=== PATIENT | male | born 1985 | race Two or more races ===

== ENCOUNTER 2016-11-03 08:29 | Emergency (ER) | payer SELFPAY ==
[~2016-11-03] VITALS: Ht 165.1 cm; Wt 63.0 kg
[2016-11-03 08:57] VITALS: BP 120/80
[2016-11-03 09:58] LABS: GLUCOSE URINE NEGATIVE (NEGATIVE); KETONES URINE NEGATIVE (NEGATIVE); LEUKOCYTE ESTERASE URINE NEGATIVE (NEGATIVE); NITRITE URINE NEGATIVE (NEGATIVE); OCCULT BLOOD URINE TRACE (NEGATIVE); PH URINE 6.5 (4.5-8.0); PROTEIN URINE NEGATIVE (NEGATIVE); UROBILINOGEN URINE 0.2 E.U./dL (0.2-1.0)
[2016-11-03 10:02] LABS: CLARITY URINE CLEAR (CLEAR); COLOR URINE STRAW (YELLOW)
== END 2016-11-03 11:18 | disposition home or self-care (01) ==
LOC: ER 09:28
DX: N48.1 Balanitis (principal); R21 Rash and other nonspecific skin eruption
CPT/HCPCS: 81001; 99283

== ENCOUNTER 2019-06-06 20:40 | Emergency (ER) | payer SELFPAY ==
[~2019-06-06] VITALS: Ht 165.1 cm; Wt 64.0 kg
[2019-06-06] MEDS ORDERED: ACETAMINOPHEN 325MG TABLET PO ONE (22:45)
[2019-06-07 00:14] VITALS: BP 124/72
== END 2019-06-07 00:19 | disposition home or self-care (01) ==
LOC: ER 20:40
DX: S63.501A Unspecified sprain of right wrist, initial encounter (principal); S50.01XA Contusion of right elbow, initial encounter; S40.011A Contusion of right shoulder, initial encounter; S20.211A Contusion of right front wall of thorax, initial encounter; W01.0XXA Fall on same level from slipping, tripping and stumbling without subsequent striking against object, initial encounter; Y93.89 Activity, other specified; Y92.89 Other specified places as the place of occurrence of the external cause; Y99.8 Other external cause status
CPT/HCPCS: 71100; 73030; 73080; 73110; 99284